=== PATIENT | female | born 1995 | race African-American/Black ===

== ENCOUNTER 2016-10-10 17:13 | Emergency (ER) | payer OTHER ==
[2016-10-10 17:28] VITALS: BP 129/77
--- NOTE | 2016-10-10 17:47 | ER Document Report ---
HPI - HPI Patient complains to provider of: dental pain Pain Level: 5 Context: 21 yo female c/o pain to left upper tooth x 2 days. Associated Symptoms: None Exacerbated by: Food Relieved by: Denies Similar symptoms previously: No Recently seen / treated by doctor: No - ROS Systems Reviewed and Negative: Yes All other systems reviewed and negative - REPRODUCTIVE Reproductive: DENIES: : - DERM Skin Color: Normal Past Medical History - General Information source: Patient - Social History Smoking Status: Never Smoker Frequency of alcohol use: Social Drug Abuse: None Lives with: Family Family History: Reviewed & Not Pertinent Patient has suicidal ideation: No Patient has homicidal ideation: No - Past Medical History Cardiac Medical History: Denies: Hx Heart Attack, Hx Hypertension Pulmonary Medical History: Reports: Hx Asthma - OUTGREW IT Neurological Medical History: Denies: Hx Cerebrovascular Accident, Hx Seizures Renal/ Medical History: Denies: Hx Peritoneal Dialysis GI Medical History: Denies: Hx Hepatitis, Hx Hiatal Hernia, Hx Ulcer Infectious Medical History: Denies: Hx Hepatitis Past Surgical History: Reports: Hx Adenoidectomy - 04/17/16, Hx Tonsillectomy - 04/17/16. Denies: Hx Mastectomy, Hx Open Heart Surgery, Hx Pacemaker Vertical Provider Document - CONSTITUTIONAL Agree With Documented VS: Yes Exam Limitations: No Limitations General Appearance: Moderate Distress - tearful - INFECTION CONTROL TRAVEL OUTSIDE OF THE [place] IN LAST 30 DAYS: No - HEENT HEENT: Atraumatic, PERRLA Mouth Diagram: 1 - pain - NECK Neck: Normal Inspection, Supple - RESPIRATORY Respiratory: Breath Sounds Normal, No Respiratory Distress O2 Sat by Pulse Oximetry: 100 - CARDIOVASCULAR Cardiovascular: Regular Rate, Regular Rhythm - NEURO Level of Consciousness: Awake, Alert, Appropriate - DERM Integumentary: Warm, Dry, No Rash Course - Vital Signs Vital signs: Temp Pulse Resp BP Pulse Ox 98.4 F 67 18 129/77 H 100 10/10/16 17:27 10/10/16 17:27 10/10/16 17:27 10/10/16 17:27 10/10/16 17:27 Discharge - Discharge Clinical Impression: Pain, dental Condition: Stable Disposition: HOME, SELF-CARE Instructions: Clindamycin ([facility]), Oral Narcotic Medication ([facility]), Toothache ([facility] ) Additional Instructions: meds as prescribed follow up with dental SHAYNA for further evaluation and treatment Prescriptions: Clindamycin HCl [Cleocin HCl] 150 mg PO Q6H #28 capsule Hydrocodone/Acetaminophen [[place] 5-325 Tablet] 1 each PO Q4H PRN #10 tablet PRN Reason: Forms: Return to Work, Parent Work Note
== END 2016-10-10 17:58 | disposition home or self-care (01) ==
LOC: ER 17:13
DX: K08.89 Other specified disorders of teeth and supporting structures (principal)
CPT/HCPCS: 99282

== ENCOUNTER 2017-06-29 00:25 | Emergency (ER) | payer OTHER ==
[2017-06-29 01:58] LABS: ABSOLUTE BASOPHILS # (AUTO) 0.1 10^3/uL (0.0-0.2); ABSOLUTE EOSINOPHILS # (AUTO) 0.1 10^3/uL (0.0-0.6); ABSOLUTE LYMPHOCYTES (AUTO) 3.2 10^3/uL (0.5-4.7); ABSOLUTE MONOCYTES (AUTO) 0.4 10^3/uL (0.1-1.4); ABSOLUTE NEUT (AUTO) 4.4 10^3/uL (1.7-8.2); BASOPHILS % (AUTO) 0.7 % (0-2); EOSINOPHILS % (AUTO) 1.6 % (0-6); HEMATOCRIT 36.5 % (36.0-47.0); HEMOGLOBIN 12.4 g/dL (12.0-15.5); LYMPHOCYTES % (AUTO) 39.5 % (13-45); MEAN CORPUSCULAR HEMOGLOBIN 28.5 pg (27.0-33.4); MEAN CORPUSCULAR HGB CONC 33.9 g/dL (32.0-36.0); MEAN CORPUSCULAR VOLUME 84 fl (80-97); MONOCYTES % (AUTO) 4.6 % (3-13); PLATELET COUNT 333 10^3/uL (150-450); RED BLOOD COUNT 4.34 10^6/uL (3.72-5.28); SEGMENTED NEUTROPHILS % (AUTO) 53.6 % (42-78); TOTAL CELLS COUNTED % (AUTO) 100 %; WHITE BLOOD COUNT 8.1 10^3/uL (4.0-10.5)
[2017-06-29 02:12] LABS: ALANINE AMINOTRANSFERASE 35 U/L (9-52); ALBUMIN 4.3 g/dL (3.5-5.0); ALKALINE PHOSPHATASE 90 U/L (38-126); ANION GAP 13 (5-19); ASPARTATE AMINO TRANSFERASE 17 U/L (14-36); BILIRUBIN,DIRECT 0.2 mg/dL (0.0-0.4); BILIRUBIN,TOTAL 0.4 mg/dL (0.2-1.3); BLOOD UREA NITROGEN 9 mg/dL (7-20); CALCIUM 10.3 mg/dL (8.4-10.2); CARBON DIOXIDE 26 mmol/L (22-30); CHLORIDE 105 mmol/L (98-107); GLUCOSE 137 mg/dL (75-110); POTASSIUM 3.7 mmol/L (3.6-5.0); SODIUM 143.8 mmol/L (137-145); TOTAL PROTEIN 7.4 g/dL (6.3-8.2)
[2017-06-29 02:16] LABS: ACETAMINOPHEN < 10 ug/mL (10-30); ALCOHOL < 10 mg/dL (NONE DETECTED); SALICYLATE < 1.0 mg/dL (2.0-20.0)
[2017-06-29 02:21] LABS: APPEARANCE,URINE SLIGHTLY-CLOUDY; BILIRUBIN,URINE NEGATIVE (NEGATIVE); COLOR,URINE YELLOW; GLUCOSE, URINE NEGATIVE (NEGATIVE); KETONES,URINE NEGATIVE (NEGATIVE); LEUKOCYTE ESTERASE,URINE NEGATIVE (NEGATIVE); NITRITE,URINE NEGATIVE (NEGATIVE); PROTEIN,URINE NEGATIVE (NEGATIVE); URINE SPECIFIC GRAVITY 1.024; UROBILINOGEN,URINE NEGATIVE mg/dL (<2.0)
[2017-06-29 02:33] LABS: URINE AMPHETAMINES SCREEN NEGATIVE; URINE BARBITURATES SCREEN NEGATIVE; URINE BENZODIAZEPINES SCREEN NEGATIVE; URINE COCAINE SCREEN NEGATIVE; URINE MARIJUANA (THC) SCREEN UNCONFIRMED POSITIVE; URINE METHADONE SCREEN NEGATIVE; URINE PHENCYCLIDINE SCREEN NEGATIVE
--- NOTE | 2017-06-29 03:17 | ER Document Report ---
ED General - General TRAVEL OUTSIDE OF THE [place] IN LAST 30 DAYS: No <REBECCA MEJIA - Last Filed: 06/29/17 03:13> <GODWIN VILLASENOR - Last Filed: 06/29/17 10:04> <JEFRY MARTIN - Last Filed: 06/29/17 10:43> - General Chief Complaint: Psych Problem Stated Complaint: PSYCH EVAL Time Seen by Provider: 06/29/17 01:02 Notes: Patient is a pleasant 22-year-old female presents with complaint of having episodes where her mood "goes down". Patient says that this is been happening for years but recently has become more intense. She says she had an episode yesterday where her turned off the music. She says they were having an argument there is no reason be upset but she really got upset the fact that he turned off the music. She said she thought about cutting herself. She said she did not think about cutting herself to kill herself. She says she thought of cutting herself as a way to really stress. She says she has talked her primary care doctor about this. They have checked her for thyroid issues. She also has a regular menstrual periods and therefore she went to her computer applications engineer. She says that her mood changes do not seem to be in conjunction with any type of menstrual cycle. She says are very random. She wishes to see psychiatry being that she feels that her symptoms are getting worse. Currently the patient says she feels good and has no complaints. (REBECCA MEJIA) - Related Data Allergies/Adverse Reactions: No Known Allergies Allergy (Verified 06/29/17 00:54) Home Medications: Current Home Medications No Home Medications 06/29/17 [History] Past Medical History - Social History Smoking Status: Never Smoker Frequency of alcohol use: None Drug Abuse: None Family History: Reviewed & Not Pertinent Patient has suicidal ideation: Yes Patient has homicidal ideation: No - Past Medical History Cardiac Medical History: Denies: Hx Heart Attack, Hx Hypertension Pulmonary Medical History: Reports: Hx Asthma - OUTGREW IT Neurological Medical History: Denies: Hx Cerebrovascular Accident, Hx Seizures Renal/ Medical History: Denies: Hx Peritoneal Dialysis GI Medical History: Denies: Hx Hepatitis, Hx Hiatal Hernia, Hx Ulcer Infectious Medical History: Denies: Hx Hepatitis Past Surgical History: Reports: Hx Adenoidectomy - 04/17/16, Hx Tonsillectomy - 04/17/16. Denies: Hx Mastectomy, Hx Open Heart Surgery, Hx Pacemaker <REBECCA MEJIA - Last Filed: 06/29/17 03:13> Review of Systems <REBECCA MEJIA - Last Filed: 06/29/17 03:13> <GODWIN VILLASENOR - Last Filed: 06/29/17 10:04> <JEFRY MARTIN - Last Filed: 06/29/17 10:43> - Review of Systems Notes: My Normal Review Basic REVIEW OF SYSTEMS: CONSTITUTIONAL : Denies fever, chills, or sweats. Denies recent illness. RESPIRATORY: Denies cough, cold, or chest congestion. Denies shortness of breath, difficulty breathing, or wheezing. GASTROINTESTINAL: Denies abdominal pain. Denies nausea, vomiting, or diarrhea. Denies constipation. Last BM: GENITOURINARY: Denies difficulty urinating, painful urination, burning, frequency, or blood in urine. FEMALE GENITOURINARY: Chronically irregular menstrual periods. MUSCULOSKELETAL: Denies neck or back pain or joint pain or swelling. SKIN: Denies rash or skin lesions. NEUROLOGICAL: Denies altered mental status or loss of consciousness. Denies headache. Denies weakness or paralysis or loss of use of either side. Denies problems with gait or speech. Denies sensory or motor loss. PSYCHIATRIC: Mood swings with depression. ALL OTHER SYSTEMS REVIEWED AND NEGATIVE. (REBECCA MEJIA) Physical Exam <REBECCA MEJIA - Last Filed: 06/29/17 03:13> <GODWIN VILLASENOR - Last Filed: 06/29/17 10:04> <JEFRY MARTIN - Last Filed: 06/29/17 10:43> - Vital signs Vitals: Temp Pulse Resp BP Pulse Ox 98.0 F 67 17 137/85 H 97 06/29/17 00:56 06/29/17 00:56 06/29/17 00:56 06/29/17 00:56 06/29/17 00:56 - Notes Notes: General Appearance: Well nourished, alert, cooperative, no acute distress, no obvious discomfort. Well-appearing. Vitals: reviewed, See vital signs table. Head: no swelling or tenderness to the head Eyes: PERRL, EOMI, Conjuctiva clear Mouth: No decreasd moisture Neck: Supple, no neck tenderness, Lungs: No wheezing, No rales, No rhonci, No accessory muscle use, good air exchange bilaterally. Heart: Normal rate, Regular rythm, No murmur, no rub Abdomen: Normal BS, soft, No rigidity, No abdominal tenderness, No guarding, no rebound, no abdominal masses, no organomegaly Extremities: good pulses in all extremities Neuro: speech clear, oriented x 3, normal affect, responds appropriately to questions. (REBECCA MEJIA) Course - Laboratory Result Diagrams: 06/29/17 01:45 06/29/17 01:45 <REBECCA MEJIA - Last Filed: 06/29/17 03:13> - Laboratory Result Diagrams: 06/29/17 01:45 06/29/17 01:45 <GODWIN VILLASENOR - Last Filed: 06/29/17 10:04> - Laboratory Result Diagrams: 06/29/17 01:45 06/29/17 01:45 <JEFRY MARTIN - Last Filed: 06/29/17 10:43> - Re-evaluation Re-evalutation: 06/29/17 03:15 She is well-appearing. She is voluntary wants to speak with psychiatry. She does not meet IVC criteria. She is not suicidal. She has not injured herself at this time. She is medically stable for psychiatric evaluation. Dictation of this chart was performed using voice recognition software; therefore, there may be some unintended grammatical errors. (REBECCA MEJIA) - Vital Signs Vital signs: Temp Pulse Resp BP Pulse Ox 97.7 F 68 18 116/80 99 06/29/17 07:15 06/29/17 07:15 06/29/17 07:15 06/29/17 07:15 06/29/17 07:15 - Laboratory Laboratory results interpreted by me: 06/29/17 06/29/17 01:45 01:45 RDW 15.0 H Glucose 137 H Calcium 10.3 H Salicylates < 1.0 L Acetaminophen < 10 L Discharge <REBECCA MEJIA - Last Filed: 06/29/17 03:13> <GODWIN VILLASENOR - Last Filed: 06/29/17 10:04> <JEFRY MARTIN - Last Filed: 06/29/17 10:43> - Discharge Clinical Impression: Depression Qualifiers: Depression Type: unspecified Qualified Code(s): F32.9 - Major depressive disorder, single episode, unspecified Condition: Stable Disposition: HOME, SELF-CARE Additional Instructions: DEPRESSION: Your evaluation reveals that you have mental depression. While symptoms may be vague, they often include disturbance of sleep, fatigue, loss of appetite , and general loss of interest in life. While depression may be a side effect of drugs, or a reaction to a major change in your life, many cases have no known cause. If depression is acute, and related to a major loss in your life, you can expect it to clear completely with time. If you have been depressed a long time , are prone to repeated bouts of depression or low mood, or have been thinking of suicide, get help. Depression can be treated with anti-depressant medication and counselling. Long-term depression will often take a few weeks to clear, even with appropriate medication. Follow-up care is important. FOLLOW-UP CARE: You have been given a list of community providers with a referral to [facility]. It is recommended you follow up to establish care for your mental health treatment with the provider of your choice. Also included in the list are numbers for Mobile Crisis to utilize as needed. If you experience worsening or a significant change in your symptoms, notify the physician immediately or return to the Emergency Department at any time for re-evaluation. Depression Referrals: [facility] [Outside] - Follow up as needed
--- NOTE | 2017-06-29 07:43 | EKG REPORT ---
SEVERITY:- BORDERLINE ECG - SINUS RHYTHM INFERIOR Q WAVES, PROBABLY NORMAL VARIATION : Confirmed by: Cristian Mercado MD 29-Jun-2017 07:43:10
[2017-06-29 10:52] VITALS: BP 132/73
--- NOTE | 2017-06-29 11:25 | PSYCHOLOGICAL NOTE ---
Psych Note - Psych Note Psych Note: Reason for consult: Depression Consents given: Samy Islas, Patient is a 22 year old female who presented in the Emergency Department for feeling down and being unable to shake the depressed mood. She reported she had "a spell" the day before yesterday and could not "shake myself out of it." She reported having periods of depression throughout her lifetime but noticing an increase within the last year. She stated she is aware of her moods and knows she is becoming angry and irritable "for no reason" but feels she is unable to regulate these moods. She stated she becomes upset over "the smallest thing." She reported becoming irrationally angry over her turning music off when he wasn't aware she was listening to it and leaving the oven light on after cooking. She stated when she "gets down" she feels like she needs to isolate herself and engages in crying spells or feelings of overwhelming anger. She stated although she has periods of depression throughout her lifetime she doesn't want it to overwhelm her future. She reported wanting to enjoy her life with her and possibly go back to school and have children in the future. She reported a decrease in her sleep, stating she was not able to get to sleep until 3 or 4 in the morning and then having to get up for work. She stated she always felt like her "moodiness" was due to being a teenage but then she never "outgrew it." Patient denied suicidal/homicidal ideation, intent or plan. She stated she has "too much to live for to ever want to hurt myself." She denied any psychiatric treatment, diagnoses or medications. She reported she has not had any alcohol in the last year. She reported drinking consistently prior to this year as a young adult and then deciding she did not want to drink anymore. She reported drinking 1-2 bottles a week while spending time with her . She denied drinking before driving or going to work. She stated she and her would spend time at home after work or on the weekends and would drink at that time. She denied feeling any need for alcohol education or treatment. Patient denied drug use. Patient denied any previous mental health treatment or any family history of mental health issues. Collateral contact was made with the patient's after verbal consent was given by the patient. The patient's stated he has observed the patient having ribeiro mood changes and getting down on herself. He stated her mood changes in the blink of an eye. He denied any concerns about the patient engaging in any self harming behavior. The agreed to monitor the patient for the next 24 hours as he does not have to go to work today. Patient was alert and oriented to person, place, time and circumstance. Mood was euthymic with congruent affect. Patient denied suicidal/homicidal ideation, intent or plan. She did not appear to be responding to internal stimuli as evidenced by appropriate eye contact, maintaining conversation and staying on topic. No delusions or psychosis noted. Thought processes were organized and linear. Conversational speech was within normal limits for rate, tone and prosody. Intellectual abilities were estimated in the average range. Insight, judgment and impulse control were good as evidenced by being future oriented, identifying future plans and wanting outpatient treatment. 1. 311 (F32.9) Unspecified Depressive Disorder Impression/Plan: Patient is psychiatrically clear. Patient denied suicidal/ homicidal ideation, intent or plan. Patient is not considered a danger to herself or others. No delusions or psychosis were observed. Patient has a support system in place, with her and extended family. Patient was given a referral to [facility] as well as a list of other community providers. Provided education around utilization of mobile crisis if needed in the future as well as contact information for that service. Consulted with Dr. Ellsworth regarding the care and management of this patient. ED physician in agreement with recommendation and disposition.
== END 2017-06-29 10:53 | disposition home or self-care (01) ==
LOC: ER 00:25
DX: F32.9 Major depressive disorder, single episode, unspecified (principal); N92.6 Irregular menstruation, unspecified
CPT/HCPCS: 36415; 80053; 80307; 81001; 84703; 85025; 93005; 93010; 99285

== ENCOUNTER 2017-11-27 09:46 | Emergency (ER) | payer SELFPAY ==
[2017-11-27 09:52] VITALS: BP 135/81
--- NOTE | 2017-11-27 10:07 | ER Document Report ---
HPI - HPI Patient complains to provider of: Sore throat and losing voice Onset: Yesterday Onset/Duration: Gradual Pain Level: 3 Context: 22-year-old non-smoker status post tonsillectomy one year ago is complaining of nasal congestion, losing her voice, sore throat, and right ear pain that started yesterday. She has body aches but no fever. Associated Symptoms: None Exacerbated by: Denies, Other - Swallowing Relieved by: Denies - ROS ROS below otherwise negative: Yes Systems Reviewed and Negative: Yes All other systems reviewed and negative - CONSTITUTIONAL Constitutional: REPORTS: Chills - EENT EENT: REPORTS: Sore Throat, Ear Pain - right - REPRODUCTIVE Reproductive: DENIES: : Past Medical History - General Information source: Patient - Social History Smoking Status: Never Smoker Frequency of alcohol use: None Drug Abuse: None Lives with: Family Family History: Reviewed & Not Pertinent Patient has suicidal ideation: No Patient has homicidal ideation: No Pulmonary Medical History: Reports: Hx Asthma - OUTGREW IT Renal/ Medical History: Denies: Hx Peritoneal Dialysis Past Surgical History: Reports: Hx Adenoidectomy - 04/17/16, Hx Tonsillectomy - 04/17/16 Vertical Provider Document - CONSTITUTIONAL Agree With Documented VS: Yes Exam Limitations: No Limitations General Appearance: No Apparent Distress - INFECTION CONTROL TRAVEL OUTSIDE OF THE [place] IN LAST 30 DAYS: No - HEENT HEENT: Normocephalic, Pharyngeal Erythema. negative: Conjuctival Injection, Tympanic Membrane Red, Tympanic Membrane Bulging - NECK Neck: Supple. negative: Lymphadenopathy-Left, Lymphadenopathy-Right - RESPIRATORY Respiratory: Breath Sounds Normal, No Respiratory Distress - CARDIOVASCULAR Cardiovascular: Regular Rate, Regular Rhythm Course - Re-evaluation Re-evalutation: 11/27/17 10:41 Rapid strep is negative - Vital Signs Vital signs: Temp Pulse Resp BP Pulse Ox 99.6 F 106 H 16 135/81 H 97 11/27/17 09:50 11/27/17 09:50 11/27/17 09:50 11/27/17 09:50 11/27/17 09:50 Discharge - Discharge Clinical Impression: Upper respiratory infection, Laryngitis, Sore throat Condition: Good Disposition: HOME, SELF-CARE Instructions: Sore Throat ([facility]), Upper Respiratory Illness ([facility]), Acetaminophen , Ibuprofen (General) ([facility]) Additional Instructions: Plenty of fluids Throat culture is pending Return to the emergency room if symptoms worsen Tylenol Motrin Chloraseptic spray for the sore throat Forms: Return to Work Referrals: FLAVIO FREITAS MD [Primary Care Provider] - Follow up as needed
== END 2017-11-27 10:50 | disposition home or self-care (01) ==
LOC: ER 09:46
DX: J02.9 Acute pharyngitis, unspecified (principal); J04.0 Acute laryngitis; J06.9 Acute upper respiratory infection, unspecified; R09.81 Nasal congestion; H92.01 Otalgia, right ear; Z90.89 Acquired absence of other organs
CPT/HCPCS: 87070; 87880; 99283

== ENCOUNTER 2017-11-30 12:23 | Emergency (ER) | payer SELFPAY ==
[2017-11-30 12:38] VITALS: BP 120/83
--- NOTE | 2017-11-30 13:37 | ER Document Report ---
ED General - General Chief Complaint: Nose Bleed Stated Complaint: NOSE BLEED,COUGHING UP BLOOD Time Seen by Provider: 11/30/17 13:37 Mode of Arrival: Ambulatory Information source: Patient TRAVEL OUTSIDE OF THE [place] IN LAST 30 DAYS: No - HPI Notes: 22-year-old female presents today with complaints of ear pain, has been having a dry cough, started with a nosebleed this morning, states she still some blood was coughing up blood. Denies any fevers or chills. Worse with time, patient states nothing makes better. The patient was seen in the ED for strep throat approximately 3 to 4 days ago, results are negative. Has not tried any over-the -counter medications. Does not take blood thinners, does not have any bleeding disorders. Patient states at the [place] resolved approximately 3 minutes of pinching her nose. Denies fevers, chills, chest pain,palpitations, shortness of breath, dyspnea, nausea, vomiting, diarrhea, abdominal pain, hematuria, blurred vision, double vision, loss of vision, speech changes, LH, dizziness, syncope, headaches, wheezing, ST, URI, neck pain, weakness, bowel or bladder dysfunction, saddle anesthesia, numbness or tingling in bilateral upper or lower extremities equally, muscle paralysis, weakness in bilateral upper or lower extremities equally or rash. Denies IV drug use. - Related Data Allergies/Adverse Reactions: No Known Allergies Allergy (Verified 11/30/17 12:26) Past Medical History - General Information source: Patient - Social History Smoking Status: Never Smoker Family History: Reviewed & Not Pertinent - Past Medical History Cardiac Medical History: Denies: Hx Heart Attack, Hx Hypertension Pulmonary Medical History: Reports: Hx Asthma - OUTGREW IT Neurological Medical History: Denies: Hx Seizures Renal/ Medical History: Denies: Hx Peritoneal Dialysis GI Medical History: Denies: Hx Hiatal Hernia, Hx Ulcer Past Surgical History: Reports: Hx Adenoidectomy - 04/17/16, Hx Tonsillectomy - 04/17/16. Denies: Hx Mastectomy, Hx Open Heart Surgery Review of Systems - Review of Systems Constitutional: No symptoms reported EENT: See HPI Cardiovascular: No symptoms reported Respiratory: No symptoms reported Gastrointestinal: No symptoms reported Genitourinary: No symptoms reported Female Genitourinary: No symptoms reported Musculoskeletal: No symptoms reported Skin: No symptoms reported Hematologic/Lymphatic: No symptoms reported Neurological/Psychological: No symptoms reported Physical Exam - Vital signs Vitals: Temp Pulse Resp BP Pulse Ox 97.9 F 80 20 120/83 98 11/30/17 12:35 11/30/17 12:35 11/30/17 12:35 11/30/17 12:35 11/30/17 12:35 - Notes Notes: PHYSICAL EXAMINATION: GENERAL: Well-appearing, well-nourished and in no acute distress. HEAD: Atraumatic, normocephalic. EYES: Bilateral TMs with erythema, buldging. TM intact. pupils equal round and reactive to light, extraocular movements intact, conjunctiva are normal. ENT: Nares patent, oropharynx clear without exudates. Moist mucous membranes. NECK: Normal range of motion, supple without lymphadenopathy LUNGS: Breath sounds clear to auscultation bilaterally and equal. No wheezes rales or rhonchi. HEART: Regular rate and rhythm without murmurs ABDOMEN: Soft, nontender, nondistended abdomen. No guarding, no rebound. No masses appreciated. Female : deferred Musculoskeletal: Normal range of motion, no pitting or edema. No cyanosis. NEUROLOGICAL: Cranial nerves grossly intact. Normal speech, normal gait. Normal sensory, motor exams PSYCH: Normal mood, normal affect. SKIN: Warm, Dry, normal turgor, no rashes or lesions noted. Course - Re-evaluation Re-evalutation: 11/30/17 14:14 22-year-old female afebrile, vitals stable, no distress. Resents for evaluation of ear pain, sore throat congestion having an episode of V. tach this morning, which has since resolved after 5 minutes. Patient does have bilateral otitis media, will treat with amoxicillin, patient states sometimes she does get nauseous with amoxicillin, will prescribe her Zofran. Advised to take gqbd-[id number] ibuprofen and Tylenol. I have reevaluated this patient multiple times and no significant life threatening changes, no signs of toxicity , sepsis or peritonitis are noted. The patient and I have discussed the diagnosis and risks, and we agree with discharging home and close follow-up. We also discussed returning to the Emergency Department immediately if new or worsening symptoms occur with the understanding that symptoms and presentations can change. At this time will discharge with return precautions and follow-up recommendations. Verbal discharge instructions given a the bedside and opportunity for questions given. We have discussed the symptoms which are most concerning (e.g., fever, neck pain, severe headache, rashes, difficulty swallowing, bloody nose that does not resolve) that necessitate immediate return. Medication warnings reviewed. All questions and concerns answered by this provider. Patient is in agreement with this plan and has verbalized understanding of return precautions and the need for primary care follow-up in the next 24-72 hours. Patient verbalized understanding of plan of care and agree with plan of care. - Vital Signs Vital signs: Temp Pulse Resp BP Pulse Ox 97.9 F 80 20 120/83 98 11/30/17 12:35 11/30/17 12:35 11/30/17 12:35 11/30/17 12:35 11/30/17 12:35 Discharge - Discharge Clinical Impression: Bilateral acute otitis media, Epistaxis, resolved Condition: Stable Disposition: HOME, SELF-CARE Instructions: Otitis Media ([facility]) Additional Instructions: OTITIS MEDIA: You have a middle ear infection (otitis media). This is usually a complication of a cold or sore throat. The middle ear cavity becomes filled with infection. Pressure and stretching of the ear drum cause pain. Antibiotics are required. A 10 day course is usually prescribed. A decongestant may be recommended if you have a "runny nose." You may need anesthetic drops or other pain medication. A follow-up exam may be recommended to make sure the infection has completely cleared. If the ear begins to drain, it means the ear drum has ruptured. This will usually heal spontaneously. However, it means you should keep the ear dry until re-examined by a doctor. Call the physician or return for examination at once if there is severe headache, stiff neck, confusion, increasing fever, or dizziness. You should improve significantly within two days. If you're not better, call the doctor. OTITIS MEDIA--CHILD: Your child has a middle ear infection (otitis media). This often occurs with a cold or sore throat. The middle ear cavity is filled by infection. The usual treatment for otitis media is a 10 day course of antibiotics. A decongestant may be recommended if your child has a "runny nose." Tylenol and/ or codeine may have been prescribed if your child is unable to sleep because of pain or for the fever. Numbing ear drops are sometimes given to decrease severe ear pain. A follow-up exam is often done in two weeks to make sure the infection has completely cleared. Call the doctor if your child does not improve within 48 hours, or if the child appears to be more ill in any way such as severe headache, stiff neck, repeated vomiting, or lethargy. If the ear begins to drain, it means the ear drum has ruptured. This will usually heal spontaneously, but it means you should keep the ear dry until the re-examination is performed. AMOXICILLIN: Amoxicillin is a member of the penicillin family. It covers the germs likely to cause ear, bronchial, and urinary infections better than plain penicillin. Amoxicillin can be taken without regard to meals. Nausea after taking the medication is rare, but can occur. Diarrhea can occur, particularly in small children. Vaginal yeast infections and oral thrush in infants are also common. Contact your physician if these problems occur. Allergy to penicillins is common. If you have had an allergic reaction to any drug of the penicillin family, you should never take any other penicillin. Notify your doctor at once if you develop hives, itching, swelling, faintness, or shortness of breath. Less serious side effects can include nausea or diarrhea. If you have been referred to a physician for follow-up care, call the physician s office for an appointment as you were instructed or within the next two days. If you experience worsening or a significant change in your symptoms, notify the physician immediately or return to the Emergency Department at any time for re-evaluation. NOSEBLEED SELF-CARE - With the right self-care, most nosebleeds will stop. Here' s what you should do if you get one: 1. Gently blow your nose to get rid of some of the clots that have formed inside your nostrils. This may increase the bleeding temporarily, but that's OK. For young children, this step is not necessary. 2. Sit or stand while bending forward slightly at the waist. Do not lie down or tilt your head back. This may cause you to swallow blood and can lead to vomiting. 3. Life Scientist the soft part of BOTH nostrils at the bottom of your nose (picture 1). Do not burial agent the bony bridge of your nose, as that will not help the bleeding, and do not apply pressure to just one side, even if the bleeding is only on one side. 4. Squeeze your nose closed for at least 5 minutes (for children) or 10 to 15 minutes (for adults), and use a clock to time yourself. Do not release the pressure every so often to check whether the bleeding has stopped. Many people hurt their chances of stopping the bleeding by releasing the pressure too soon. 5. If you want, you can also apply a cold compress or ice pack to the bridge of your nose. This may help the blood vessels constrict and slow the bleeding. This step is not usually necessary, but many people like to do it. NOSEBLEED PREVENTION - If you get nosebleeds frequently, the following measures may help reduce the chances of getting a nosebleed: Use a humidifier in your bedroom while sleeping, especially when the air is very dry Keep your nose moist using a saline nasal spray or gel Avoid picking your nose, or - if you must do it - clip your fingernails to avoid injury If you follow the steps outlined above, and your nose continues to bleed, repeat all the steps once more. Apply pressure for a total of at least 30 minutes. If you continue to bleed, seek emergency medical care, either at an emergency room or at an urgent care clinic. Return immediately for any new or worsening symptoms. Follow up with primary care provider, call tomorrow to make followup appointment. Prescriptions: Amoxicillin Trihydrate [Amoxil 500 mg Capsule] 500 mg PO TID #30 capsule Ondansetron [Zofran Odt 4 mg Tablet] 1 - 2 tab PO Q4H PRN #15 tab.rapdis PRN Reason: For Nausea/Vomiting Referrals: FLAVIO FREITAS MD [Primary Care Provider] - Follow up in 3-5 days
== END 2017-11-30 14:32 | disposition home or self-care (01) ==
LOC: ER 12:23
DX: R04.0 Epistaxis (principal); H66.93 Otitis media, unspecified, bilateral; R04.2 Hemoptysis; J02.9 Acute pharyngitis, unspecified; I47.2 Ventricular tachycardia
CPT/HCPCS: 99283

== ENCOUNTER 2018-09-10 09:04 | Emergency (ER) | payer SELFPAY ==
[2018-09-10] MEDS ORDERED: ONDANSETRON HCL 8 MG TABLET PO ONE (09:28)
--- NOTE | 2018-09-10 09:33 | ER Document Report ---
ED General - General Chief Complaint: Diarrhea Stated Complaint: NAUSEA, DIZZY, DIARRHEA Time Seen by Provider: 09/10/18 09:25 Primary Care Provider: FLAVIO FREITAS MD [Primary Care Provider] - Follow up as needed TRAVEL OUTSIDE OF THE [place] IN LAST 30 DAYS: No - HPI Patient complains to provider of: Nausea dizziness diarrhea Notes: Symptoms ongoing for the last 2 weeks. Patient denies any recent sick contacts denies any antibiotics patient states compliance with her medication for underlying medical conditions. Denies any new medications in the last 2 weeks. Patient states last meal was cannulated. Patient denies any vomiting. Patient otherwise resting comfortably upon my evaluation denies fevers chills - Related Data Allergies/Adverse Reactions: No Known Allergies Allergy (Verified 09/10/18 09:06) Past Medical History - Social History Smoking Status: Unknown if Ever Smoked Family History: Reviewed & Not Pertinent - Past Medical History Cardiac Medical History: Denies: Hx Heart Attack, Hx Hypertension Pulmonary Medical History: Reports: Hx Asthma - OUTGREW IT Neurological Medical History: Denies: Hx Seizures Renal/ Medical History: Denies: Hx Peritoneal Dialysis GI Medical History: Denies: Hx Hiatal Hernia, Hx Ulcer Past Surgical History: Reports: Hx Adenoidectomy - 04/17/16, Hx Tonsillectomy - 04/17/16. Denies: Hx Mastectomy, Hx Open Heart Surgery Review of Systems - Review of Systems Constitutional: No symptoms reported EENT: No symptoms reported Cardiovascular: No symptoms reported Respiratory: No symptoms reported Gastrointestinal: Diarrhea, Nausea Genitourinary: No symptoms reported Female Genitourinary: No symptoms reported Musculoskeletal: No symptoms reported Skin: No symptoms reported Hematologic/Lymphatic: No symptoms reported Neurological/Psychological: No symptoms reported -: Yes All other systems reviewed and negative Physical Exam - Vital signs Vitals: Temp Pulse Resp BP Pulse Ox 98.5 F 84 16 131/88 H 98 09/10/18 09:10 09/10/18 09:10 09/10/18 09:10 09/10/18 09:10 09/10/18 09:10 Interpretation: Normal - General General appearance: Appears well, Alert - HEENT Head: Normocephalic, Atraumatic Eyes: Normal Pupils: PERRL - Respiratory Respiratory status: No respiratory distress Chest status: Nontender Breath sounds: Normal Chest palpation: Normal - Cardiovascular Rhythm: Regular Heart sounds: Normal auscultation Murmur: No - Abdominal Inspection: Normal Distension: No distension Bowel sounds: Normal Tenderness: Nontender Organomegaly: No organomegaly - Back Back: Normal, Nontender - Extremities General upper extremity: Normal inspection, Nontender, Normal color, Normal ROM, Normal temperature General lower extremity: Normal inspection, Nontender, Normal color, Normal ROM, Normal temperature, Normal weight bearing. No: Shante's sign - Neurological Neuro grossly intact: Yes Cognition: Normal Orientation: AAOx4 [address] Coma Scale Eye Opening: Spontaneous [place] Coma Scale Verbal: Oriented [place] Coma Scale Motor: Obeys Commands [place] Coma Scale Total: 15 Speech: Normal Motor strength normal: LUE, RUE, LLE, RLE Sensory: Normal - Psychological Associated symptoms: Normal affect, Normal mood - Skin Skin Temperature: Warm Skin Moisture: Dry Skin Color: Normal Course - Re-evaluation Re-evalutation: 09/10/18 09:30 The patient presents with diarrhea nausea without signs of peritonitis or other life-threatening or serious etiology. The patient appears stable for discharge and has been instructed to return immediately if the symptoms worsen in any way, or in 8-12hr if not improved for re-evaluation. The patient has been instructed to return if the symptoms worsen or change in any way. - Vital Signs Vital signs: Temp Pulse Resp BP Pulse Ox 98.5 F 84 16 131/88 H 98 09/10/18 09:10 09/10/18 09:10 09/10/18 09:10 09/10/18 09:10 09/10/18 09:10 Discharge - Discharge Clinical Impression: Nausea Diarrhea Qualifiers: Diarrhea type: unspecified type Qualified Code(s): R19.7 - Diarrhea, unspecified Condition: Good Disposition: HOME, SELF-CARE Instructions: Diarrhea, Nonspecific ([facility]), Nausea or Vomiting, Nonspecific ([facility]) Additional Instructions: Your symptoms are likely due to a virus. However, it is important that you continue to monitor for any concerning symptoms including inability to tolerate oral fluids, less than 2 urinations in a 24 hour period, and lethargy Please continue to offer oral solutions such as Pedialyte, water, gatorade. It is okay if you do not want to eat over the next several days but it is important that they continue to drink fluids. You may also provide a medication such as ibuprofen (Motrin) or acetaminophen (Tylenol) per box instructions for fever. Please also follow-up with your doctor in the next several days. Please take the medications given to you as prescribed. Prescriptions: Ondansetron HCl [Zofran 4 mg Tablet] 1 - 2 tab PO Q6 #30 tablet Promethazine HCl [Phenergan 25 mg Tablet] 25 mg PO Q6 #30 tablet Forms: Return to Work Referrals: FLAVIO FREITAS MD [Primary Care Provider] - Follow up as needed
[2018-09-10 10:12] VITALS: BP 117/70
== END 2018-09-10 10:15 | disposition home or self-care (01) ==
LOC: ER 09:04
DX: R11.0 Nausea (principal); R19.7 Diarrhea, unspecified
CPT/HCPCS: 99284; 81025; S0119

== ENCOUNTER 2018-09-30 23:50 | Emergency (ER) | payer SELFPAY ==
[2018-10-01 00:01] VITALS: BP 118/68
== END 2018-10-01 00:31 | disposition left against medical advice (07) ==
LOC: ER 23:50
DX: Z53.21 Procedure and treatment not carried out due to patient leaving prior to being seen by health care provider (principal)

== ENCOUNTER 2019-12-24 07:08 | Emergency (ER) | payer BC ==
[2019-12-24] MEDS ORDERED: PREDNISONE 20 MG TABLET PO ONE (09:56)
--- NOTE | 2019-12-24 10:00 | ER Document Report ---
HPI - HPI Patient complains to provider of: Skin rash Time Seen by Provider: 12/24/19 09:07 Onset: Last week Onset/Duration: Persistent, Better Pain Level: Denies Context: Patient presents with rash to the ears and back area. Patient has history of eczema as well as sensitivity to metals. Patient states she does have some metal on the frames of her eyeglasses. Patient states that she has had rash to the ears that was weeping yesterday although it stopped draining today. Patient has been treating with topical nystatin as well as pahs-wct-iyjuher hydrocortisone cream. Associated Symptoms: Other - Rash to ears and back. denies: Fever Exacerbated by: Denies Relieved by: Denies Similar symptoms previously: No Recently seen / treated by doctor: No - ROS ROS below otherwise negative: Yes Systems Reviewed and Negative: Yes All other systems reviewed and negative - CONSTITUTIONAL Constitutional: DENIES: Fever, Chills - REPRODUCTIVE Reproductive: DENIES: : - DERM Skin Problems: Rash Past Medical History - General Information source: Patient - Social History Smoking Status: Never Smoker Frequency of alcohol use: None Drug Abuse: None Occupation: [employer] Lives with: Family Family History: Reviewed & Not Pertinent - Past Medical History Cardiac Medical History: Denies: Hx Heart Attack, Hx Hypertension Pulmonary Medical History: Reports: Hx Asthma - OUTGREW IT Neurological Medical History: Denies: Hx Seizures Renal/ Medical History: Denies: Hx Peritoneal Dialysis GI Medical History: Denies: Hx Hiatal Hernia, Hx Ulcer Past Surgical History: Reports: Hx Adenoidectomy - 04/17/16, Hx Tonsillectomy - 04/17/16 Vertical Provider Document - CONSTITUTIONAL Agree With Documented VS: Yes Exam Limitations: No Limitations General Appearance: WD/WN, No Apparent Distress - INFECTION CONTROL TRAVEL OUTSIDE OF THE [place] IN LAST 30 DAYS: No - HEENT HEENT: Atraumatic - NECK Neck: Normal Inspection, Supple. negative: Lymphadenopathy-Left, Lymphadenopathy-Right - RESPIRATORY Respiratory: No Respiratory Distress - BACK Notes: Dry maculopapular rash to back - MUSCULOSKELETAL/EXTREMETIES Musculoskeletal/Extremeties: MAEW, FROM - NEURO Level of Consciousness: Awake, Alert, Appropriate Motor/Sensory: No Motor Deficit - DERM Integumentary: Warm, Dry, Rash - Patient with dry scaling rash to the periauricular area bilaterally and to the midline thoracic and lumbar back area Course - Re-evaluation Re-evalutation: 12/24/19 09:57 Patient with what appears to be eczematous flare. Patient had some weeping around open wound to the right ear worrisome for possible impetigo. No yellow crusting noted at this time, will cover with topical antibiotic and steroids. Encourage patient to use emollients [id number]. 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 Condition: Stable Disposition: HOME, SELF-CARE Instructions: Contact Dermatitis ([facility]), Atopic Dermatitis (Eczema) ([facility]) Additional Instructions: Return immediately for any new or worsening symptoms Followup with your primary care provider, call tomorrow to make a followup appointment Use rrjs-ntz-ygrjtho emollients such as CeraVe, Cetaphil, Aquaphor or Lubriderm to help moisturize skin Prescriptions: Mupirocin [Bactroban 2% Ointment 22 gm] 1 applic TP TID #22 gm Prednisone [Deltasone 5 mg Tablet] 5 mg PO ASDIR PRN #100 tablet PRN Reason: Referrals: FLAVIO FREITAS MD [Primary Care Provider] - Follow up as needed
[2019-12-24 10:27] VITALS: BP 144/98
== END 2019-12-24 10:27 | disposition home or self-care (01) ==
LOC: ER 07:08
DX: L23.0 Allergic contact dermatitis due to metals (principal)
CPT/HCPCS: 99282; J7512

== ENCOUNTER 2020-01-15 13:05 | Emergency (ER) | payer SELFPAY ==
--- NOTE | 2020-01-15 14:38 | ER Document Report ---
ED Medical Screen (RME) - General Chief Complaint: Cough Stated Complaint: COUGH/CONGESTION/DIAHERRA Time Seen by Provider: 01/15/20 14:30 Primary Care Provider: FLAVIO FREITAS MD [Primary Care Provider] - Follow up as needed TRAVEL OUTSIDE OF THE [place] IN LAST 30 DAYS: No - HPI Notes: 01/15/20 15:37 24-year-old female with a history of asthma presents to emergency room with comp laints of cough, generalized fatigue, congestion chills, diarrhea for the last 2 days. 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 Denies any chest pain shortness of breath, abdominal pain, vomiting. States she has baseline nausea but nothing is worse since she started with the symptoms. States her last menstrual cycle was December 26, 2019. Has not tried any nksa-jow-ydhhvch medications. Decreased eating and drinking. Non-smoker. I have greeted and performed a rapid initial assessment of this patient. A comprehensive ED assessment and evaluation of the patient, analysis of test results and completion of the medical decision making process will be conducted by additional ED providers. PHYSICAL EXAMINATION: GENERAL: Well-appearing, well-nourished and in no acute distress. EYES: Pupils equal round extraocular movements intact, conjunctiva are normal. NECK: Normal range of motion CV: s1, s2 regular LUNGS: No respiratory distress 01/15/20 15:39 - Related Data Allergies/Adverse Reactions: No Known Allergies Allergy (Verified 09/30/18 23:51) Past Medical History - Past Medical History Cardiac Medical History: Denies: Hx Heart Attack, Hx Hypertension Pulmonary Medical History: Reports: Hx Asthma - OUTGREW IT Neurological Medical History: Denies: Hx Seizures Renal/ Medical History: Denies: Hx Peritoneal Dialysis GI Medical History: Denies: Hx Hiatal Hernia, Hx Ulcer Past Surgical History: Reports: Hx Adenoidectomy - 04/17/16, Hx Tonsillectomy - 04/17/16. Denies: Hx Mastectomy, Hx Open Heart Surgery Doctor's Discharge - Discharge Referrals: FLAVIO FREITAS MD [Primary Care Provider] - Follow up as needed
--- NOTE | 2020-01-15 16:23 | RADIOLOGY REPORT (SQ) ---
EXAM DESCRIPTION: CHEST SINGLE VIEW IMAGES COMPLETED DATE/TIME: 01/15/2020 4:11 pm REASON FOR STUDY: cough, diarrhea, chills x 2d COMPARISON: None. NUMBER OF VIEWS: One view. TECHNIQUE: Single frontal radiographic view of the chest acquired. LIMITATIONS: None. FINDINGS: LUNGS AND PLEURA: No opacities, masses or pneumothorax. No pleural effusion. MEDIASTINUM AND HILAR STRUCTURES: No masses. Contour normal. HEART AND VASCULAR STRUCTURES: Heart normal in size. Normal vasculature. BONES: No acute findings. HARDWARE: None in the chest. OTHER: No other significant finding. IMPRESSION: NO SIGNIFICANT RADIOGRAPHIC FINDING IN THE CHEST. TECHNICAL DOCUMENTATION: JOB ID: [id number] 2010 [employer]- All Rights Reserved Reading location - IP/workstation name: [email or web address]
[2020-01-15 16:37] LABS: APPEARANCE,URINE CLEAR; BILIRUBIN,URINE NEGATIVE (NEGATIVE); COLOR,URINE YELLOW; GLUCOSE, URINE 50 mg/dL (NEGATIVE); KETONES,URINE NEGATIVE (NEGATIVE); LEUKOCYTE ESTERASE,URINE NEGATIVE (NEGATIVE); NITRITE,URINE NEGATIVE (NEGATIVE); PROTEIN,URINE NEGATIVE (NEGATIVE); UROBILINOGEN,URINE NEGATIVE mg/dL (<2.0)
--- NOTE | 2020-01-15 17:54 | ER Document Report ---
ED General - General Chief Complaint: Cough Stated Complaint: COUGH/CONGESTION/DIAHERRA Time Seen by Provider: 01/15/20 14:30 Primary Care Provider: FLAVIO FREITAS MD [Primary Care Provider] - Follow up as needed Notes: Patient is a 24-year-old -[place] female with no significant past medical history who presents to the emergency department with a chief complaint of cough, chest pain and shortness of breath. Patient reports over the past several months she is gradually been developing issues. She states that she moved into a home in [place] and started to get ill. She states she had a rash and some respiratory symptoms at that time. She states she then found out the house had mold in it and they moved out. She states she was starting to get better and moved into a trailer that subsequently wound up with a leak in 1 of the rooms leading to mold growth. She states she could tell that something was wrong with her started to feel ill again then they located the mold. She states they remedied the mold at their house and she seemed to be doing okay and then here recently her hotel had an issue with widespread mold throughout. She states anytime she is at work she gets a sensation of chest pain like a heaviness in the chest with some slight shortness of breath and cough that is sometimes dry and sometimes wet. She states that it is associated with some occasional nausea. She reports that she has had an ongoing rash pretty much throughout the entire process as well. States her last normal menstrual cycle was December 25. No vaginal bleeding or discharge. No urinary complaints. No abd ominal pain or vomiting. No fevers, chills or night sweats. No recent travel or known sick contacts. Patient is a non-smoker. No history of cancer. She denies any recent travel, recent surgery, recent immobilization, history of DVT or PE, oral contraceptives or other hormone replacement therapies. No hemoptysis. TRAVEL OUTSIDE OF THE [place] IN LAST 30 DAYS: No - Related Data Allergies/Adverse Reactions: No Known Allergies Allergy (Verified 09/30/18 23:51) Past Medical History - Social History Smoking Status: Unknown if Ever Smoked Family History: Reviewed & Not Pertinent - Past Medical History Cardiac Medical History: Denies: Hx Heart Attack, Hx Hypertension Pulmonary Medical History: Reports: Hx Asthma - OUTGREW IT Neurological Medical History: Denies: Hx Seizures Renal/ Medical History: Denies: Hx Peritoneal Dialysis GI Medical History: Denies: Hx Hiatal Hernia, Hx Ulcer Past Surgical History: Reports: Hx Adenoidectomy - 04/17/16, Hx Tonsillectomy - 04/17/16. Denies: Hx Mastectomy, Hx Open Heart Surgery Review of Systems - Review of Systems Notes: As per HPI Physical Exam - Vital signs Vitals: Temp Pulse Resp BP Pulse Ox 98.3 F 86 18 150/88 H 100 01/15/20 16:13 01/15/20 16:13 01/15/20 16:13 01/15/20 16:13 01/15/20 16:13 - General General appearance: Appears well, Alert In distress: None - HEENT Head: Normocephalic, Atraumatic Eyes: Normal Conjunctiva: Normal Extraocular movements intact: Yes Eyelashes: Normal Pupils: PERRL Ears: Normal External canal: Normal Tympanic membrane: Normal Nasal: Normal Mouth/Lips: Normal Pharynx: Normal Neck: Normal - Respiratory Respiratory status: No respiratory distress Chest status: Nontender Breath sounds: Normal Chest palpation: Normal - Cardiovascular Rhythm: Regular Heart sounds: Normal auscultation Murmur: No - Extremities General upper extremity: Normal inspection, Nontender, Normal color, Normal ROM, Normal temperature General lower extremity: Normal inspection, Nontender, Normal color, Normal ROM, Normal temperature, Normal weight bearing. No: Shante's sign - Neurological Neuro grossly intact: Yes Cognition: Normal Orientation: AAOx4 - Psychological Associated symptoms: Normal affect, Normal mood - Skin Skin Color: Other - Widespread plaques and dry skin noted widely on the back, behind the ears back of the neck and some areas on the anterior upper chest. Course - Re-evaluation Re-evalutation: 01/15/20 19:29 EKG: Sinus rhythm at 80 bpm. Normal intervals. Normal axis. No STEMI. J- point elevation in lead II. Interpreted by ED attending. 01/15/20 19:39 X-ray negative for acute process per radiologist. Patient's work-up is largely unremarkable. Suspect given her very specific history and presentation today that this has to do with chronic allergies likely related specifically to subtype of mold. Patient will be referred to plastic eye technician for allergy testing and further treatment recommendations. In the meantime we will start her on Zyrtec. Counseled her regarding the importance of outpatient follow-up and advised that she return here or any ER immediately with any new, persistent or worsening symptoms. She verbalized understood and agreed. - Vital Signs Vital signs: Temp Pulse Resp BP Pulse Ox 98.3 F 86 18 150/88 H 100 01/15/20 16:13 01/15/20 16:13 01/15/20 16:13 01/15/20 16:13 01/15/20 16:13 - Laboratory Result Diagrams: 01/15/20 18:56 01/15/20 18:56 Laboratory results interpreted by me: 01/15/20 01/15/20 01/15/20 16:05 18:56 18:56 RDW 15.9 H Total Protein 8.3 H Urine Glucose (UA) 50 H Discharge - Discharge Clinical Impression: Allergies Qualifiers: Encounter type: initial encounter Qualified Code(s): T78.40XA - Allergy, unspecified, initial encounter Condition: Stable Disposition: HOME, SELF-CARE Instructions: Chest Pain of Unclear Cause ([facility]), Acute Allergic Reaction ([facility]) Additional Instructions: Please follow-up with the allergy doctor for further testing, care and management. Please return here or any ER immediately with any new, persistent or worsening symptoms. Prescriptions: Cetirizine HCl 10 mg PO DAILY #30 tablet Forms: Return to Work Referrals: FLAVIO FREITAS MD [Primary Care Provider] - Follow up as needed
[2020-01-15 19:06] LABS: ABSOLUTE EOSINOPHILS # (AUTO) 0.1 10^3/uL (0.0-0.6); ABSOLUTE MONOCYTES (AUTO) 0.4 10^3/uL (0.1-1.4); ABSOLUTE NEUT (AUTO) 2.8 10^3/uL (1.7-8.2); BASOPHILS % (AUTO) 0.5 % (0-2); EOSINOPHILS % (AUTO) 2.7 % (0-6); HEMOGLOBIN 13.1 g/dL (12.0-15.5); LYMPHOCYTES % (AUTO) 37.3 % (13-45); MEAN CORPUSCULAR HEMOGLOBIN 28.4 pg (27.0-33.4); MEAN CORPUSCULAR HGB CONC 33.4 g/dL (32.0-36.0); MEAN CORPUSCULAR VOLUME 85 fl (80-97); MONOCYTES % (AUTO) 7.2 % (3-13); PLATELET COUNT 282 10^3/uL (150-450); RED CELL DISTRIBUTION WIDTH 15.9 % (11.5-14.0); SEGMENTED NEUTROPHILS % (AUTO) 52.3 % (42-78); TOTAL CELLS COUNTED % (AUTO) 100 %; WHITE BLOOD COUNT 5.4 10^3/uL (4.0-10.5)
[2020-01-15 19:32] LABS: ALBUMIN 4.6 g/dL (3.5-5.0); ALKALINE PHOSPHATASE 81 U/L (38-126); ANION GAP 7 (5-19); ASPARTATE AMINO TRANSFERASE 21 U/L (14-36); BILIRUBIN,TOTAL 0.4 mg/dL (0.2-1.3); BLOOD UREA NITROGEN 8 mg/dL (7-20); CALCIUM 9.8 mg/dL (8.4-10.2); CARBON DIOXIDE 28 mmol/L (22-30); CHLORIDE 104 mmol/L (98-107); GLUCOSE 96 mg/dL (75-110); POTASSIUM 3.9 mmol/L (3.6-5.0); TOTAL PROTEIN 8.3 g/dL (6.3-8.2)
[2020-01-15 20:45] VITALS: BP 123/77
--- NOTE | 2020-01-16 08:34 | EKG REPORT ---
SEVERITY:- NORMAL ECG - SINUS RHYTHM : Confirmed by: Christine Christianson MD 16-Jan-2020 08:33:44
== END 2020-01-15 20:46 | disposition home or self-care (01) ==
LOC: ER 13:05
DX: T78.40XA Allergy, unspecified, initial encounter (principal); X58.XXXA Exposure to other specified factors, initial encounter; R05 Cough; R07.9 Chest pain, unspecified; R06.02 Shortness of breath; R11.0 Nausea; R21 Rash and other nonspecific skin eruption; Z77.120 Contact with and (suspected) exposure to mold (toxic)
CPT/HCPCS: 36415; 71045; 80053; 81001; 81025; 85025; 93005; 93010; 99284